=== PATIENT | female | born 1940 | race Caucasian/White ===

== ENCOUNTER 2017-09-12 22:25 | Emergency (ER) | payer MEDICARE, BC ==
[2017-09-12] MEDS ORDERED: Morphine 4 MG/ML Syringe IVPUSH ONE (22:42)
--- NOTE | 2017-09-12 23:38 | EDM.PDOC ---
ED HPI GENERAL MEDICAL PROBLEM - General Chief Complaint: Lower Extremity Injury/Pain Stated Complaint: FALL Time Seen by Provider: 09/12/17 22:30 Source of Information: Reports: Patient History Limitations: Reports: No Limitations - History of Present Illness INITIAL COMMENTS - FREE TEXT/NARRATIVE: Ed via [facility] on back board with c/o left hip pain. Reports tripped over bag at home landed left hip, pain. Denied other injury, no loss of consciousness. no neck or back pain. Hx CLL, IDDM with pump. HTN. Hx last summer with West Nile Virus. Last meal at supper. Notes swelling of left foot and ankle present before fall. Left Hip Pain Score (Numeric/FACES): 5 - Related Data Allergies Allergy/AdvReac Type Severity Reaction Status Date / Time No Known Allergies Allergy Verified 09/12/17 22:43 Home Meds: Home Meds Lisinopril 40 mg PO DAILY 09/12/17 [History] Simvastatin [Zocor] 10 mg PO DAILY 09/12/17 [History] amLODIPine [Norvasc] 20 mg PO DAILY 09/12/17 [History] Past Medical History HEENT History: Reports: Cataract, Impaired Vision Cardiovascular History: Reports: Hypertension TECHNICAL INFORMATION SPECIALIST History: Reports: Musculoskeletal History: Reports: Fracture Endocrine/Metabolic History: Reports: Diabetes, Type I Oncologic (Cancer) History: Reports: Other (See Below) Other Oncologic History: chronic lymphatic leukemia - Infectious Disease History Other Infectious Disease History: West Nile 01/03 - Past Surgical History GI Surgical History: Reports: Appendectomy Social & Family History - Tobacco Use Smoking Status *Q: Never Smoker - Caffeine Use Caffeine Use: Reports: Coffee - Recreational Drug Use Recreational Drug Use: No Review of Systems - Review of Systems Review Of Systems: ROS reveals no pertinent complaints other than HPI. ED EXAM, GENERAL - Physical Exam Exam: See Below Exam Limited By: No Limitations General Appearance: Alert, Moderate Distress Eye Exam: Bilateral Eye: EOMI Ears: Normal External Exam Nose: Normal Inspection Throat/Mouth: Normal Inspection Head: Atraumatic, Normocephalic Neck: Normal Inspection Respiratory/Chest: No Respiratory Distress, Lungs Clear Cardiovascular: Normal Peripheral Pulses, Regular Rate, Rhythm Peripheral Pulses: 2+: Dorsalis Pedis (L), Dorsalis Pedis (R) GI/Abdominal: Normal Bowel Sounds, Soft, Non-Tender Back Exam: No: Paraspinal Tenderness, Vertebral Tenderness Extremities: Pedal Edema (left lower), Leg Pain (left hip), Limited Range of Motion (left hip, external rotation, shortened). No: Mottled, Pallor, Redness Neurological: Alert, Oriented, Normal Cognition Psychiatric: Normal Affect, Normal Mood Skin Exam: Warm, Dry, Intact, Normal Color Course - Vital Signs Last Recorded V/S: Last Vital Signs Temp 98.7 F 09/12/17 22:26 Pulse Resp 22 H 09/12/17 22:26 BP 136/61 09/12/17 22:26 Pulse Ox 91 L 09/12/17 22:26 - Orders/Labs/Meds Orders: Active Orders 24 hr Category Date Time Status Cazares Catheter Insertion [Insert Urinary Catheter] [OM. Care 09/12/17 23:45 Ordered PC] Q24H Urinary Catheter Assessment [RC] ASDIRECTED Care 09/12/17 23:36 Active Chest 1V Frontal [CR] Urgent Exams 09/12/17 22:42 Taken Pelvis wo Cont [CT] Urgent Exams 09/12/17 22:46 Taken UA W/MICROSCOPIC [URIN] Stat Lab 09/12/17 23:15 Ordered Labs: Laboratory Tests 09/12/17 09/12/17 09/12/17 Range/Units 22:24 22:24 23:15 WBC 41.6 H* (5.0-10.0) 10^3/uL RBC 4.03 L (4.2-5.4) 10^6/uL Hgb 12.3 (12.0-16.0) g/dL Hct 37.3 (37.0-47.0) % MCV 92.6 (80-100) fL MCH 30.5 (27.0-34.0) pg MCHC 33.0 (33.0-35.0) g/dL Plt Count 153 (150-450) 10^3/uL Add Manual Diff Yes Neutrophils % (Manual) 12 L (42-75) % Lymphocytes % (Manual) 82 H (20-50) % Monocytes % (Manual) 6 (2-8) % Sodium 138 (135-145) mmol/L Potassium 3.6 (3.6-5.0) mmol/L Chloride 103 (101-111) mmol/L Carbon Dioxide 24.0 (21.0-31.0) mmol/L Anion Gap 14.6 BUN 24 H (7-18) mg/dL Creatinine 1.0 (0.6-1.3) mg/dL Est Cr Clr Drug Dosing 46.54 mL/min Estimated GFR (MDRD) 54 BUN/Creatinine Ratio 24.00 Glucose 80 (74-105) mg/dL Calcium 9.0 (8.4-10.2) mg/dl Total Bilirubin 0.2 (0.2-1.0) mg/dL AST 34 (10-42) IU/L ALT 24 (10-60) IU/L Alkaline Phosphatase 77 (42-121) IU/L Troponin I 0.03 H* (0.00-0.02) ng/ml Total Protein 6.5 L (6.7-8.2) g/dl Albumin 3.8 (3.2-5.5) g/dl Globulin 2.7 Albumin/Globulin Ratio 1.41 Urine Color Light yellow (YELLOW) Urine Appearance Clear (CLEAR) Urine pH 7.5 (5.0-9.0) Ur Specific [place] 1.015 (1.005-1.030) Urine Protein 30 H (NEGATIVE) Urine Glucose (UA) Negative (NEGATIVE) Urine Ketones Trace H (NEGATIVE) Urine Occult Blood Negative (NEGATIVE) Urine Nitrite Negative (NEGATIVE) Urine Bilirubin Negative (NEGATIVE) Urine Urobilinogen 0.2 (0.2-1.0) mg/dL Ur Leukocyte Esterase Negative (NEGATIVE) Urine RBC 0-5 /HPF Urine WBC 0-5 (0-5/HPF) /HPF Ur Epithelial Cells Occasional /HPF Urine Bacteria Few (0-FEW/HPF) /HPF Meds: Medications Discontinued Medications Generic Name Dose Route Start Last Admin Trade Name Freq PRN Reason Stop Dose Admin Morphine Sulfate 4 mg 09/12/17 22:42 09/12/17 22:52 Morphine IVPUSH 09/12/17 22:43 4 mg ONETIME ONE Administration Morphine Sulfate 4 mg 09/13/17 00:00 Morphine IVPUSH 09/13/17 00:01 ONETIME ONE - Radiology Interpretation Free Text/Narrative:: 09/13/17 00:03 CT Pelvis acute comminuted left intraratrochanteric fracture of proximal femur peripheral edamatous changes are seen within the intermuscular fascial palnes of the left inguinal region multiple abnormal superficial inguinal lymph nodes seen on the left with mildly prominent right superficial inguinal node seen as well. CXR: no acute findings. Cardiac silloutte upper limits of normal - Re-Assessments/Exams Free Text/Narrative Re-Assessment/Exam: 09/13/17 00:[address] Bandar Dominguez, accepting of patient for further eval and management comminuted Fx Left intratrochanter Tx via LRAS. Departure - Departure Time of Disposition: 00:36 Disposition: Home, Self-Care 01 Condition: Good Clinical Impression: Intertrochanteric fracture, hip, Hx of chronic lymphocytic leukemia, History of West Nile virus (WNV) infection HTN (hypertension) Qualifiers: Hypertension type: essential hypertension Qualified Code(s): I10 - Essential ( primary) hypertension - Discharge Information Referrals: PCP,None [Primary Care Provider] - Forms: ED Department Discharge - My Orders Last 24 Hours: My Active Orders 09/12/17 22:42 Chest 1V Frontal [CR] Urgent 09/12/17 22:46 Pelvis wo Cont [CT] Urgent 09/12/17 23:15 UA W/MICROSCOPIC [URIN] Stat 09/12/17 23:36 Urinary Catheter Assessment [RC] ASDIRECTED 09/12/17 23:45 Cazares Catheter Insertion [Insert Urinary Catheter] [OM.PC] Q24H - Assessment/Plan Last 24 Hours: My Active Orders 09/12/17 22:42 Chest 1V Frontal [CR] Urgent 09/12/17 22:46 Pelvis wo Cont [CT] Urgent 09/12/17 23:15 UA W/MICROSCOPIC [URIN] Stat 09/12/17 23:36 Urinary Catheter Assessment [RC] ASDIRECTED 09/12/17 23:45 Cazares Catheter Insertion [Insert Urinary Catheter] [OM.PC] Q24H
[2017-09-13] MEDS ORDERED: Morphine 10 MG/ML Syringe IVPUSH ONE
[2017-09-13] MEDS ORDERED: Morphine 2 MG/ML Syringe ONE (00:39)
== END 2017-09-13 00:52 ==
LOC: EDSEX → DL.ED 22:25
DX: S72.142A Displaced intertrochanteric fracture of left femur, initial encounter for closed fracture (principal); I10 Essential (primary) hypertension; E10.9 Type 1 diabetes mellitus without complications; Z85.6 Personal history of leukemia; Z86.19 Personal history of other infectious and parasitic diseases; Z79.899 Other long term (current) drug therapy; W01.190A Fall on same level from slipping, tripping and stumbling with subsequent striking against furniture, initial encounter; Y92.009 Unspecified place in unspecified non-institutional (private) residence as the place of occurrence of the external cause
CPT/HCPCS: 36415; 51702; 71045; 72192; 80053; 81001; 84484; 85025; 96374; 96376; 99284; 99285; J2270

== ENCOUNTER 2024-12-03 14:03 | Emergency (ER) | payer MEDICARE, BC ==
[2024-12-03] MEDS: Take Home: Cephalexin 500 MG Cap, 6 Cap Pack PO ONE (14:32)
== END 2024-12-03 14:55 | disposition home or self-care (01) ==
LOC: DL.ED 14:03
DX: L03.115 Cellulitis of right lower limb (principal); L02.611 Cutaneous abscess of right foot; I10 Essential (primary) hypertension; E10.9 Type 1 diabetes mellitus without complications; Z90.49 Acquired absence of other specified parts of digestive tract; Z79.899 Other long term (current) drug therapy
CPT/HCPCS: 99283; A9270; 99284

== ENCOUNTER 2025-01-13 10:16 | Emergency (ER) | payer MEDICARE, BC ==
[2025-01-13 10:33] LABS: PLATELET COUNT,PLT 77 10^3/uL (150-450); RED BLOOD CELL COUNT 3.39 10^6/uL (4.2-5.4); WHITE BLOOD CELL COUNT,WBC 7.2 10^3/uL (5.0-10.0)
[2025-01-13 10:40] LABS: BASOPHILS PERCENT AUTO 0.6 % (0.0-1.0); EOSINOPHILS PERCENT AUTO 0.0 % (1.0-3.0); LYMPHOCYTES PERCENT AUTO 13.6 % (20.5-50.1); MONOCYTES PERCENT AUTO 8.2 % (2-8); NEUTROPHILS PERCENT AUTO 77.6 % (42.2-75.2)
[2025-01-13 10:48] LABS: LYMPHOCYTES PERCENT MAN 12 % (20-50); MONOCYTES PERCENT MAN 9 % (2-8); SEG NEUTROPHILS PERCENT MAN 79 % (42-75)
[2025-01-13 10:55] LABS: A/G RATIO 0.93; ALANINE AMINOTRANSFERASE,ALT 33.0 U/L (14-59); ASPARTATE AMNIOTRANSFERASE,AST 30.0 U/L (15-37); BILIRUBIN TOTAL 0.3 mg/dL (0.2-1.0); BLOOD UREA NITROGEN,BUN 46.0 mg/dL (7-18); CARBON DIOXIDE,CO2 24.0 mmol/L (21-32); CHLORIDE,CL 103.0 mmol/L (98-107); CREATININE 1.6 mg/dL (0.55-1.02); EST CRCL DRUG DOSING (CG) 22.04 mL/min; ESTIMATED GFR 32.0 mL/min (>=60); GLUCOSE RANDOM 215.0 mg/dL (70-99); POTASSIUM,K 4.8 mmol/L (3.5-5.1); PROTEIN TOTAL,TP 5.4 g/dL (6.4-8.2); SODIUM,NA 135.0 mmol/L (136-145)
[2025-01-13] MEDS: Iopamidol 755 Mg/ML 100 ML Bottle IVPUSH ONE (12:49)
[2025-01-13] MEDS: Magnesium Sulfat/D5W 1GM/100ML 1 GM in Premix Bag 1 BAG IV ONE (14:10)
== END 2025-01-13 15:40 | disposition home or self-care (01) ==
LOC: DL.ED 10:16
DX: B34.9 Viral infection, unspecified (principal); E86.0 Dehydration; I10 Essential (primary) hypertension; E10.9 Type 1 diabetes mellitus without complications; Z90.49 Acquired absence of other specified parts of digestive tract; Z79.899 Other long term (current) drug therapy
CPT/HCPCS: 36415; 70450; 71275; 80053; 83735; 84484; 85025; 85379; 87428; 93005; 93010; 96361; 96365; 99284; 99285; J3475; J7030; Q9967